=== PATIENT | female | born 1980 | race Caucasian/White ===

== ENCOUNTER 2018-11-10 01:10 | Inpatient (IN) | payer BC ==
[~2018-11-10 01:10] MED LIST: ELECTROLYTE-148 SOLN 500 ML IV ONE
[2018-11-10] MEDS ORDERED: ELECTROLYTE-148 SOLN 500 ML IV ONE (02:10)
[2018-11-10] MEDS ORDERED: ELECTROLYTE-148 SOLN 1,000 ML IV SCH ×2 (05:45→10:00)
[2018-11-10] MEDS ORDERED: MAGNESIUM 4GM/H20 - 4 GM/100 ML IVPB IVPB ONE (06:15)
[2018-11-10] MEDS ORDERED: MAGNESIUM SULFATE IN WATER 4 GM/50 ML IVPB IVPB ONE (06:23)
[2018-11-10] MEDS: ELECTROLYTE-148 SOLN 1,000 ML IV SCH ×2 (06:30→14:30)
[2018-11-10] MEDS ORDERED: BETAMET ACET/BETAMET NA PH 30 MG/5 ML VIAL ONE (06:34)
[2018-11-10] MEDS: BETAMET ACET/BETAMET NA PH 30 MG/5 ML VIAL IM SCH (06:40)
[2018-11-10] MEDS ORDERED: MAGNESIUM SULFATE 20GM/500ML - 20 GM/500 ML INFUS.BAG IVPB SCH ×2 (06:45→14:00)
[2018-11-10] MEDS ORDERED: CLINDAMYCIN 600MG PREMIX IVPB 600 MG/50 ML BAG IVPB SCH (07:00)
[2018-11-10] MEDS ORDERED: GENTAMICIN 80 MG PREMIXED IVPB 80 MG/100 ML BAG IVPB SCH (07:00)
[2018-11-10] MEDS ORDERED: MAGNESIUM SULFATE 20GM/500ML - 20 GM/500 ML INFUS.BAG ONE ×2 (07:05→19:44)
[2018-11-10 07:15] VITALS: BMI 27.8
[2018-11-10 07:24] LABS: BASO % 0.3 % (0-2.0); EOS % 2.7 % (0-4.5); HEMATOCRIT 35.4 % (32.4-45.2); HEMOGLOBIN 12.1 GM/dL (10.7-15.3); LYMPH % 19.6 % (8-40); MCH 30.5 pg (25.7-33.7); MCHC 34.3 g/dl (32.0-36.0); MEAN CELL VOLUME 88.9 fl (80-96); MEAN PLT VOLUME 7.9 fl (7.5-11.1); MONO % 5.5 % (3.8-10.2); NEUT % 71.9 % (42.8-82.8); PLATELET COUNT 242 K/MM3 (134-434); RBC 3.98 M/mm3 (3.60-5.2); WHITE BLOOD COUNT 14.7 K/mm3 (4.0-10.0)
[2018-11-10] MEDS ORDERED: GENTAMICIN SO4 80 MG/2 ML VIAL ONE (07:36)
[2018-11-10 07:38] LABS: INR 0.93 (0.83-1.09)
[2018-11-10 07:41] LABS: ACTIVATED PTT 23.6 SECONDS (25.2-36.5)
[2018-11-10 07:45] LABS: ANION GAP 9 MMOL/L (8-16); BLOOD UREA NITROGEN 7 mg/dL (7-18); CALCIUM 7.5 mg/dL (8.5-10.1); CHLORIDE 109 mmol/L (98-107); CO2 22 mmol/L (21-32); CREATININE 0.4 mg/dL (0.55-1.3); GLUCOSE,RANDOM 86 mg/dL (74-106); POTASSIUM 3.9 mmol/L (3.5-5.1); SODIUM 140 mmol/L (136-145)
[2018-11-10 09:44] LABS: URINE APPEARANCE CLEAR; URINE BILIRUBIN NEGATIVE (<2.0 mg/dL); URINE COLOR STRAW; URINE GLUCOSE (UA) NEGATIVE (NEGATIVE); URINE KETONE NEGATIVE (NEGATIVE); URINE LEUK ESTERASE NEGATIVE (NEGATIVE); URINE NITRITE NEGATIVE (NEGATIVE); URINE PROTEIN NEGATIVE (NEGATIVE); URINE UROBILINOGEN NEGATIVE mg/dL (0.2-1.0)
--- NOTE | 2018-11-10 09:53 | HP ---
Past Medical History - Primary Care Physician PCP:: Galina Hernandez - Admission Chief Complaint: 37yo @ 26.6wks with contructions, no VB, no LOF, + FM. She recieved 1 liter of IVF in EU contructions disappeared and restarted after hydration was stopped History of Present Illness: 1. AMA - normal Cell free DNA 2. PTL with both prior pregnancies, delivered - Maria Alejandra since 16wks this , long cervix currently 3. 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 GDMA2 with prior - early GTT neg History Source: Patient, Medical Record Limitations to Obtaining History: No Limitations - Past Medical History ...: 3 ...Para: 2 ...: 2 ...LMP: 05/06/19 ... Weeks Gestation by Dates: 26.6 ...EDC by Dates: 02/10/19 ...EDC by Sono: 02/10/19 Additional OB History: h/o abnormal PAP, most current negative - Past Surgical History Past Surgical History: Yes: None Hx Myomectomy: No Hx Transabdominal Cerclage: No - Smoking History Smoking history: Never smoked - Alcohol/Substance Use Hx Alcohol Use: No History of Substance Use: reports: None - Social History Usual Living Arrangement: Yes: With Spouse History of Recent Travel: No Home Medications - Allergies Allergies/Adverse Reactions: Allergies Allergy/AdvReac Type Severity Reaction Status Date / Time clindamycin Allergy Severe Itching Verified 11/10/18 08:07 Penicillins Allergy Intermediate Itching Verified 11/10/18 02:30 - Home Medications Home Medications: Ambulatory Orders Vitamin Tablet 1 tab PO DAILY 11/10/18 Progesterone 250 mg IM WEEKLY 11/10/18 Family Disease History - Family Disease History Family History: Denies Review of Systems - Review of Systems Constitutional: reports: No Symptoms Eyes: reports: No Symptoms HENT: reports: No Symptoms Neck: reports: No Symptoms Cardiovascular: reports: No Symptoms Respiratory: reports: No Symptoms Gastrointestinal: reports: No Symptoms Genitourinary: reports: Other ( contructions) Breasts: reports: No Symptoms Reported Musculoskeletal: reports: No Symptoms Integumentary: reports: No Symptoms Neurological: reports: No Symptoms Endocrine: reports: No Symptoms Hematology/Lymphatic: reports: No Symptoms Psychiatric: reports: No Symptoms Physical Exam - Maternity Vital Signs: Vital Signs Temperature 98.0 F 11/10/18 08:00 Pulse Rate 81 11/10/18 09:00 Respiratory Rate 18 11/10/18 09:00 Blood Pressure 119/67 11/10/18 09:00 O2 Sat by Pulse Oximetry (%) Constitutional: Yes: Well Nourished, No Distress Eyes: Yes: WNL HENT: Yes: WNL, Atraumatic, Normocephalic Neck: Yes: WNL, Supple, Trachea Midline Cardiovascular: Yes: WNL, Regular Rate and Rhythm Lungs: Clear to auscultation Breast(s): Yes: WNL - Abdominal Exam/OB Fundal Height: 26 Number of Fetuses: Single Presentation: Vertex (by US) Contractions: Yes Regularity: Regular Intensity: Mild/Mod Monitor Mode: External Heart Rate (range): 140 Heart Rate Location: Midline Category: I Accelerations: Uniform Decelerations: None - Vaginal Exam/OB Vaginal Bleediing: No Dilatation (cm): 0 Effacement (%): 0 Amniotic Membrane Status: Intact Presentation: Vertex/Position Station: -3 - Physical Exam Musculoskeletal: Yes: WNL Extremities: Yes: WNL Edema: No Integumentary: Yes: WNL ...Motor Strength: WNL Psychiatric: Yes: WNL, Alert, Oriented - Labs Lab Results: CBC, BMP 11/10/18 07:05 11/10/18 07:05 Imaging - Results Ultrasound: Report Reviewed (Cervix 3.6cm, EFW - 998gm) Assessment/Plan 37yo P2 @ 26.6wks with painful regular contructions since sever prematurity Tocolysis/Neroprophylaxis with MgSo4 started UA and GBS cultures collected Celestone for lung maturity given Vancomycin for GBS prophylaxis started Plan discussed with patient all questions answered
[2018-11-10] MEDS ORDERED: VANCOMYCIN 1,000 MG in DEXTROSE 5%-WATER - 250 ML IVPB ONE (10:30)
[2018-11-10] MEDS ORDERED: PRENATAL VITAMINS W/ FOLIC ACID TABLET (FP) PO SCH (10:30)
--- NOTE | 2018-11-10 21:03 | PN ---
Progress Note, Physician Chief Complaint: 37yo P2 @ 26.2 wks in labor she has no complains - Current Medication List Current Medications: Active Medications Betamethasone Acet/Betameth SodPhos (Celestone Soluspan -) 12.5 mg IM Q24H OLIVIA Stop: 11/11/18 07:46 Last Admin: 11/10/18 06:40 Dose: 12.5 mg Parenteral Electrolytes (Plasma-Lyte 148 -) 1,000 mls @ 75 mls/hr IV ASDIR OLIVIA Last Admin: 11/10/18 14:30 Dose: 75 mls/hr Magnesium Sulfate (Magnesium Sulfate 20gm/500ml -) 20 gm in 500 mls @ 25 mls/ hr IVPB ASDIR OLIVIA Last Admin: 11/10/18 13:30 Dose: 25 mls/hr Patient's Own Med ( Chewable Vitamin) 1 each PO DAILY OLIVIA - Objective Vital Signs: Vital Signs Temperature 97.9 F 11/10/18 20:00 Pulse Rate 94 H 11/10/18 20:00 Respiratory Rate 18 11/10/18 20:00 Blood Pressure 112/63 11/10/18 20:00 O2 Sat by Pulse Oximetry (%) 98 11/10/18 14:52 Constitutional: Yes: Well Nourished, No Distress, Calm Eyes: Yes: WNL, Conjunctiva Clear HENT: Yes: WNL, Atraumatic, Normocephalic Neck: Yes: WNL, Supple, Trachea Midline Cardiovascular: Yes: WNL, Regular Rate and Rhythm, Murmur Respiratory: Yes: Regular, CTA Bilaterally Gastrointestinal: Yes: WNL Genitourinary: Yes: WNL Musculoskeletal: Yes: WNL Extremities: Yes: WNL Edema: No Peripheral Pulses WNL: Yes Neurological: Yes: WNL, Alert, Oriented ...Motor Strength: WNL Psychiatric: Yes: WNL, Alert, Oriented Additional Findings/Remarks: FHR: 140s Category 1 Appropriate for GA ToCo no contructions Labs: CBC, BMP 11/10/18 07:05 11/10/18 07:05 INR, PTT INR 0.93 (0.83-1.09) 11/10/18 07:05 Assessment/Plan 37yo P2 @ 26.2wks s/p # 1 dose of Celestone for lung maturity on MgSo4 for Neuroprophilaxis s/p Vancomycin for GBS prophylaxis Cultures pending no s/s of MgSo4 toxicity, level therapeutic, tolarated by patient well will d/c MgSo4 after 2nd Celestone dose @ 6:30 am and observe plan discussed with patient, she fully understands
[2018-11-10 23:02] LABS: BASO % 0.1 % (0-2.0); HEMOGLOBIN 12.8 GM/dL (10.7-15.3); LYMPH % 7.4 % (8-40); MCH 30.7 pg (25.7-33.7); MCHC 34.5 g/dl (32.0-36.0); MEAN CELL VOLUME 88.9 fl (80-96); MONO % 4.6 % (3.8-10.2); NEUT % 87.9 % (42.8-82.8); PLATELET COUNT 262 K/MM3 (134-434); RBC 4.16 M/mm3 (3.60-5.2); RDW 13.1 % (11.6-15.6); WHITE BLOOD COUNT 20.4 K/mm3 (4.0-10.0)
[2018-11-11 00:22] LABS: PLATELET ESTIMATE ADEQUATE
[2018-11-11] MEDS: ELECTROLYTE-148 SOLN 1,000 ML IV SCH (04:35)
[2018-11-11] MEDS ORDERED: ELECTROLYTE-148 SOLN 1,000 ML IV SCH (06:30)
[2018-11-11] MEDS: BETAMET ACET/BETAMET NA PH 30 MG/5 ML VIAL IM SCH (06:35)
[2018-11-11] MEDS: PRENATAL VITAMIN PO SCH (10:00)
--- NOTE | 2018-11-11 18:42 | PN ---
Progress Note, Physician Chief Complaint: 37yo P2 @ 26.2 wks in labor she has no complains today, no contractions - Current Medication List Current Medications: Active Medications Patient's Own Med ( Chewable Vitamin) 1 each PO DAILY OLIVIA Last Admin: 11/11/18 10:00 Dose: 1 each - Objective Vital Signs: Vital Signs Temperature 99 F 11/11/18 18:00 Pulse Rate 79 11/11/18 18:00 Respiratory Rate 20 11/11/18 18:00 Blood Pressure 114/59 L 11/11/18 18:00 O2 Sat by Pulse Oximetry (%) 98 11/10/18 14:52 Constitutional: Yes: Well Nourished, No Distress, Calm Eyes: Yes: WNL, Conjunctiva Clear HENT: Yes: WNL, Atraumatic, Normocephalic Neck: Yes: WNL, Supple, Trachea Midline Cardiovascular: Yes: WNL, Regular Rate and Rhythm Respiratory: Yes: WNL, Regular, CTA Bilaterally Gastrointestinal: Yes: WNL, Normal Bowel Sounds, Soft Genitourinary: Yes: Other (Cervicx - L/C/P) Musculoskeletal: Yes: WNL Extremities: Yes: WNL Edema: No Peripheral Pulses WNL: Yes Integumentary: Yes: WNL Wound/Incision: Yes: Clean/Dry, Well Approximated Neurological: Yes: WNL, Alert, Oriented ...Motor Strength: WNL Psychiatric: Yes: WNL, Alert, Oriented Labs: CBC, BMP 11/10/18 22:30 11/10/18 07:05 INR, PTT INR 0.93 (0.83-1.09) 11/10/18 07:05 Assessment/Plan 37yo P2 @ 27wks admited with painful regular contractions s/p #2 doses of Celestone 24hrs of MgSo4 and 1 dose of Vancomycin Urine and GBS cultures are negative She does not have any discomfort or s/s of PTL will transfer to Antepartum service for 24hr observation
--- NOTE | 2018-11-12 08:14 | PN ---
Progress Note (SOAP) - Subjective Chief Complaint: Feels well, no contractions, no pain, no LOF, good FM - Current Medications Current Medications: Active Medications Patient's Own Med ( Chewable Vitamin) 1 each PO DAILY OLIVIA Last Admin: 11/11/18 10:00 Dose: 1 each - Objective Vital Signs: Vital Signs Temperature 98.6 F 11/11/18 22:00 Pulse Rate 74 11/11/18 22:00 Respiratory Rate 18 11/11/18 22:00 Blood Pressure 114/58 L 11/11/18 22:00 O2 Sat by Pulse Oximetry (%) 98 11/10/18 14:52 Constitutional: Yes: Well Nourished Eyes: Yes: WNL, Conjunctiva Clear HENT: Yes: WNL, Atraumatic, Normocephalic Neck: Yes: WNL, Supple, Trachea Midline Cardiovascular: Yes: WNL, Regular Rate and Rhythm Respiratory: Yes: WNL, Regular, CTA Bilaterally Gastrointestinal: Yes: WNL, Normal Bowel Sounds, Soft, Other (Gravid, non-tender ) Genitourinary: Yes: WNL Musculoskeletal: Yes: WNL Extremities: Yes: WNL Peripheral Pulses WNL: No Edema: No Integumentary: Yes: WNL Neurological: Yes: WNL, Alert, Oriented ...Motor Strength: Yes: WNL Psychiatric: Yes: WNL Labs Lab Results: CBC, BMP 11/10/18 22:30 11/10/18 07:05 Imaging - Results Other: Pending (NST) Assessment/Plan 37yo P0202 with at EGA 27w1d admitted with labor and successfully tocolysed. Pt w/o complaints and doing well. She is afebrile, VSS, no s/sx of labor. Plan to discharge to home. Precautions reviewed.
[2018-11-12 09:25] VITALS: BP 118/69; PULSE 81; TEMP 98.1
[2018-11-12] MEDS: PRENATAL VITAMIN PO SCH (10:15)
== END 2018-11-12 10:40 | disposition home or self-care (01) | DRG 833 ==
LOC: JDEL 01:10 → JLDR 06:00 → J3W 11-11 11:33
PROVIDERS: ADMIT Obstetrics & Gynecology; ATTEND Obstetrics & Gynecology
DX: O60.02 Preterm labor without delivery, second trimester (principal); Z3A.26 26 weeks gestation of pregnancy
CPT/HCPCS: 36415; 80048; 81003; 83735; 85025; 85610; 85730; 86593; 86850; 86900; 86901; 87081; 87086; 96372

== ENCOUNTER 2019-01-20 01:45 | Inpatient (IN) | payer BC ==
[2019-01-20 03:02] VITALS: BMI 29.8
[2019-01-20 03:21] LABS: BASO % 0.5 % (0-2.0); EOS % 1.1 % (0-4.5); HEMATOCRIT 37.4 % (32.4-45.2); HEMOGLOBIN 12.6 GM/dL (10.7-15.3); LYMPH % 22.4 % (8-40); MCHC 33.6 g/dl (32.0-36.0); MEAN CELL VOLUME 86.2 fl (80-96); MEAN PLT VOLUME 9.5 fl (7.5-11.1); MONO % 7.4 % (3.8-10.2); NEUT % 68.6 % (42.8-82.8); PLATELET COUNT 223 K/MM3 (134-434); RBC 4.33 M/mm3 (3.60-5.2); WHITE BLOOD COUNT 14.3 K/mm3 (4.0-10.0)
[2019-01-20] MEDS ORDERED: TUBERCULIN PPD 5 TU/0.1ML SYRINGE (IN PATIENT USE ONLY) ID ONE (03:30)
[2019-01-20] MEDS ORDERED: ELECTROLYTE-148 SOLN 1,000 ML IV SCH ×2 (03:30→04:45)
[2019-01-20 03:36] LABS: INR 0.91 (0.83-1.09); PROTHROMBIN TIME (PATIENT) 10.7 SEC (9.7-13.0)
[2019-01-20 03:39] LABS: ACTIVATED PTT 25.4 SECONDS (25.2-36.5)
[2019-01-20 04:05] LABS: CALCIUM 8.4 mg/dL (8.5-10.1); CREATININE 0.5 mg/dL (0.55-1.3)
--- NOTE | 2019-01-20 04:39 | HP ---
Past Medical History - Primary Care Physician PCP:: Galina Hernandez - Admission Chief Complaint: 38yo P2 @ 37wks with painful contructions, no VB, no LOF, + FM History of Present Illness: 1. GDMA1 - good control, FS 76 on admission 2. h/o PTL x 2 on Maria Alejandra this , s/p Selestone 3. HSV pos. - on Valtrex, no lesions 4. GBS negative History Source: Patient Limitations to Obtaining History: No Limitations - Past Medical History ...: 3 ...Para: 2 ...Term: 0 ...: 2 ...Spon : 0 ...Induced : 0 ...Multiple Gestation: 0 ...LMP: 05/06/18 ... Weeks Gestation by Dates: 37.0 ...EDC by Dates: 02/10/19 ...EDC by Sono: 02/10/19 Additional OB History: x 2 2007, 2009. h/o abnormal PAPs - Past Surgical History Past Surgical History: Yes: None, Appendectomy (2018 - not ruptured) Hx Myomectomy: No Hx Transabdominal Cerclage: No - Smoking History Smoking history: Never smoked Have you smoked in the past 12 months: No - Alcohol/Substance Use Hx Alcohol Use: No History of Substance Use: reports: None - Social History History of Recent Travel: No Home Medications - Allergies Allergies/Adverse Reactions: Allergies Allergy/AdvReac Type Severity Reaction Status Date / Time clindamycin Allergy Severe Itching Verified 01/08/19 18:56 terbutaline [From Brethine] Allergy Severe Verified 01/20/19 03:34 Penicillins Allergy Intermediate Itching Verified 01/08/19 18:56 - Home Medications Home Medications: Ambulatory Orders Vitamin Tablet 1 tab PO DAILY 11/10/18 Valtrex 500 mg PO DAILY 01/20/19 Family Disease History - Family Disease History Family History: Unremarkable Review of Systems - Review of Systems Constitutional: reports: No Symptoms Eyes: reports: No Symptoms HENT: reports: No Symptoms Neck: reports: No Symptoms Cardiovascular: reports: No Symptoms Respiratory: reports: No Symptoms Gastrointestinal: reports: No Symptoms Genitourinary: reports: Other (painful contructions) Breasts: reports: No Symptoms Reported Musculoskeletal: reports: No Symptoms Integumentary: reports: No Symptoms Neurological: reports: No Symptoms Endocrine: reports: No Symptoms Hematology/Lymphatic: reports: No Symptoms Psychiatric: reports: No Symptoms Pain Intensity: 5 Physical Exam - Maternity Vital Signs: Vital Signs Temperature 98.0 F 01/20/19 04:15 Pulse Rate 82 01/20/19 04:15 Respiratory Rate 18 01/20/19 04:15 Blood Pressure 123/78 01/20/19 04:15 O2 Sat by Pulse Oximetry (%) Constitutional: Yes: Well Nourished, No Distress, Calm Eyes: Yes: WNL HENT: Yes: WNL, Atraumatic, Normocephalic Neck: Yes: WNL, Supple, Trachea Midline Cardiovascular: Yes: WNL, Regular Rate and Rhythm Lungs: Clear to auscultation Breast(s): Yes: WNL - Abdominal Exam/OB Fundal Height: 37 (6lb) Number of Fetuses: Single Presentation: Vertex Contractions: Yes Regularity: Regular Intensity: Moderate Monitor Mode: External Heart Rate (range): 140 Heart Rate Location: Midline Category: I Accelerations: Uniform Decelerations: None - Vaginal Exam/OB Vaginal Bleediing: No Speculum Exam: No Dilatation (cm): 4-5 Effacement (%): 90 Amniotic Membrane Status: Intact Presentation: Vertex/Position Station: -2 - Physical Exam Musculoskeletal: Yes: WNL Extremities: Yes: WNL Edema: No Integumentary: Yes: WNL ...Motor Strength: WNL Psychiatric: Yes: WNL, Alert, Oriented - Labs Lab Results: CBC, BMP Bpos/NR/RI/HIV neg/HBsAg neg 01/20/19 02:45 01/20/19 02:45 Assessment/Plan 38yo P2 @ 37wks in labor Admit to L&D Alternating IVF to keep FS within 120-80 range Labs, NPO FS Q 2hrs Pain management as needed Anticipate
[2019-01-20] MEDS ORDERED: DEXTROSE 5%-LACTATED RINGERS 1,000 ML IV SCH (04:45)
[2019-01-20] MEDS ORDERED: FENTANYL/BUPIVACAINE/NS/PF - PCEA - 50 ML DISP.SYRIN EP ONE (05:00)
[2019-01-20] MEDS ORDERED: LIDO 2%/EPI 1:200000 PRESRVFRE (20 ML SDVIAL) ONE (05:10)
[2019-01-20] MEDS ORDERED: BUPIVACAINE HCL/PF 0.25% (2.5MG/ML) 10 ML VIAL ONE (05:10)
[2019-01-20] MEDS ORDERED: NALOXONE HCL 0.4 MG/ML VIAL IVPUSH PRN (05:31)
[2019-01-20] MEDS ORDERED: ePHEDrine SULFATE 50 MG/1 ML AMPULE ONE (05:43)
[2019-01-20] MEDS ORDERED: FENTANYL/BUPIVACAINE/NS/PF - PCEA - 50 ML DISP.SYRIN EP SCH (05:45)
--- NOTE | 2019-01-20 06:43 | PN ---
Progress Note, Labor Vaginal Exam #1 Labor Exam Date: 01/20/19 Labor Exam Time: 06:30 Heart Rate (range): 135-140, Category 1, s/p bradicaria event post Epi Dilatation: 7-8 Effacement (%): 100 Amniotic Membrane Status: Intact Presentation: Vertex/Position Station: -2 Remarks: AROM, clear fluid MFS reassuring
[2019-01-20] MEDS ORDERED: BISACODYL 10 MG SUPP.RECT RC PRN (08:01)
[2019-01-20] MEDS ORDERED: WITCH HAZEL 50% (TUCKS) 40 PAD/JAR PAD TP PRN (08:01)
[2019-01-20] MEDS ORDERED: BENZOCAINE 20% 57 GM BOTTLE TP PRN (08:01)
[2019-01-20] MEDS ORDERED: METHYLERGONOVINE MALEATE 0.2 MG/1 ML AMP IM PRN (08:01)
--- NOTE | 2019-01-20 08:02 | PN ---
Delivery - Delivery Vaginal Delivery: No Problems Type of Anesthesia: Epidural Episiotomy/Laceration: 1st degree EBL (cc): 200 Delivery, Single - Stages of Labor Date 1st Stage Initiatied: 01/19/19 Time 1st Stage Initiated: 22:00 Date 2nd Stage Initiated: 01/20/19 Time 2nd Stage Initiated: 07:20 Date of Delivery: 01/20/19 Time of Delivery: 07:40 Date Placenta Delivered: 01/20/19 Time Placenta Delivered: 07:45 Placenta: Yes: Spontaneous - Condition of Washroom Operator/[employer] Business Representative Present: No Infant Gender: Female Weight: 5 lb 13 oz Position: Right, OA - 1 Minute Total Score: 9 5 Minutes Total Score: 9 - Feeding Plan Initial Plan: Exclusive throughout hospitalization Benefits of Exclusively reinforced: Yes Remarks - Remarks Remarks: Uncomplicated delivery of head and shoulders
[2019-01-20] MEDS ORDERED: D5W-LR W/ 20 UNITS OXYTOCIN 20 UNIT/1,000 ML INFUS.BAG IV SCH (08:15)
[2019-01-20] MEDS ORDERED: OXYTOCIN 20 UNITS in 0.9% NS 20 UNIT/1,000 ML INFUS.BAG IV ONE (08:56)
[2019-01-20] MEDS: FERROUS SO4 325 MG TABLET (FP) PO SCH ×2 (14:53→21:30)
[2019-01-20] MEDS: PRENATAL VITAMINS W/ FOLIC ACID TABLET (FP) PO SCH (14:55)
[2019-01-20] MEDS: IBUPROFEN 600 MG TABLET (FP) PO PRN (20:08)
[2019-01-20] MEDS: SENNOSIDES/DOCUSATE COMBO (SENNA PLUS) TABLET (UD) PO PRN (21:30)
[2019-01-20] MEDS: BENZOCAINE 28 GM HEMORRHOIDAL OINTMENT TP PRN (21:31)
[2019-01-21] MEDS: IBUPROFEN 600 MG TABLET (FP) PO PRN ×5 (00:03→21:08)
[2019-01-21] MEDS: ACETAMINOPHEN 325 MG TABLET (FP) PO PRN ×4 (00:04→21:08)
[2019-01-21 08:07] LABS: BASO % 0.4 % (0-2.0); HEMATOCRIT 34.3 % (32.4-45.2); HEMOGLOBIN 11.6 GM/dL (10.7-15.3); LYMPH % 14.7 % (8-40); MCH 29.1 pg (25.7-33.7); MCHC 33.9 g/dl (32.0-36.0); MEAN CELL VOLUME 85.9 fl (80-96); MEAN PLT VOLUME 9.1 fl (7.5-11.1); NEUT % 77.9 % (42.8-82.8); PLATELET COUNT 200 K/MM3 (134-434); RDW 14.9 % (11.6-15.6); WHITE BLOOD COUNT 16.6 K/mm3 (4.0-10.0)
--- NOTE | 2019-01-21 08:07 | PN ---
Post Progress Note - Subjective Subjective: Patient without acute complaints. Reports tolerating oral intake without nausea or vomiting. Ambulating without dizziness. Denies fevers or chills. Pain well controlled with oral pain medication. Pumping/breast feeding without issue. Passing flatus. Post Day: 2 Type of Delivery: Vital Signs: Vital Signs Temperature 98 F 01/21/19 07:56 Pulse Rate 72 01/21/19 07:56 Respiratory Rate 18 01/21/19 07:56 Blood Pressure 108/60 01/21/19 07:56 O2 Sat by Pulse Oximetry (%) 100 01/20/19 08:45 Breast Exam: Yes: Soft Uterus: Yes: Fundus Firm, Fundus below umbilicus, Non-tender Abdomen/GI: Yes: Abdomen soft, Passing flatus, Tolerating PO Lochia: Yes: Rubra Lochia, amount: Small Extremities: Yes: Calves non-tender, Edema (trace) Perineum: Yes: Intact Activity: Ambulating - Labs Labs: CBC WBC 14.3 K/mm3 (4.0-10.0) H 01/20/19 02:45 RBC 4.33 M/mm3 (3.60-5.2) 01/20/19 02:45 Hgb 12.6 GM/dL (10.7-15.3) 01/20/19 02:45 Hct 37.4 % (32.4-45.2) 01/20/19 02:45 MCV 86.2 fl (80-96) 01/20/19 02:45 MCH 29.0 pg (25.7-33.7) 01/20/19 02:45 MCHC 33.6 g/dl (32.0-36.0) 01/20/19 02:45 RDW 15.0 % (11.6-15.6) D 01/20/19 02:45 Plt Count 223 K/MM3 (134-434) 01/20/19 02:45 MPV 9.5 fl (7.5-11.1) D 01/20/19 02:45 Absolute Neuts (auto) 9.8 K/mm3 (1.5-8.0) H 01/20/19 02:45 Neutrophils % 68.6 % (42.8-82.8) D 01/20/19 02:45 Lymphocytes % 22.4 % (8-40) D 01/20/19 02:45 Monocytes % 7.4 % (3.8-10.2) 01/20/19 02:45 Eosinophils % 1.1 % (0-4.5) D 01/20/19 02:45 Basophils % 0.5 % (0-2.0) D 01/20/19 02:45 Nucleated RBC % 0 % (0-0) 01/20/19 02:45 Assessment/Plan 38yo s/p , doing well stable, afebrile. Asymptomatic for anemia. care instructions reviewed. Continue routine care. Ambulation encouraged Discharge instruction reviewed.
--- NOTE | 2019-01-21 08:11 | DS ---
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 Vital Signs: Vital Signs Temperature 98 F 01/21/19 07:56 Pulse Rate 72 01/21/19 07:56 Respiratory Rate 18 01/21/19 07:56 Blood Pressure 108/60 01/21/19 07:56 O2 Sat by Pulse Oximetry (%) 100 01/20/19 08:45 Constitutional: Yes: Well Nourished, No Distress, Calm Eyes: Yes: WNL, Conjunctiva Clear HENT: Yes: WNL, Atraumatic, Normocephalic Neck: Yes: WNL, Supple, Trachea Midline Cardiovascular: Yes: WNL, Regular Rate and Rhythm Respiratory: Yes: WNL, Regular, CTA Bilaterally Gastrointestinal: Yes: WNL, Normal Bowel Sounds, Soft ...Rectal Exam: Yes: Deferred Renal/: Yes: WNL External Genitalia: Yes: Normal Internal Exam Deferred: Yes ....Post : Yes: Uterus firm, Uterus non-tender Breast(s): Yes: WNL Musculoskeletal: Yes: WNL Extremities: Yes: WNL Edema: Yes Edema: LLE: Trace, RLE: Trace Integumentary: Yes: WNL Neurological: Yes: WNL, Alert, Oriented ...Motor Strength: WNL Psychiatric: Yes: WNL, Alert, Oriented Labs: CBC, BMP 01/20/19 02:45 Delivery - Delivery Vaginal Delivery: No Problems Type of Anesthesia: Epidural Episiotomy/Laceration: 1st degree EBL (cc): 200 Delivery, Single - Stages of Labor Date 1st Stage Initiatied: 01/19/19 Time 1st Stage Initiated: 22:00 Date 2nd Stage Initiated: 01/20/19 Time 2nd Stage Initiated: 07:20 Date of Delivery: 01/20/19 Time of Delivery: 07:40 Time Placenta Delivered: 07:45 Placenta: Yes: Spontaneous - Condition of Department [employer]/Dental Aide Present: No Gender: Female Weight: 2.637 kg Position: Right, OA Total Hours ROM (Hrs/Mins): 1h5m - 1 Minute Total Score: 9 5 Minutes Total Score: 9 - Feeding Plan Initial Plan: Exclusive throughout hospitalization Benefits of Exclusively reinforced: Yes Discharge Summary Reason For Visit: LABOR GDM A1, spont labor Procedures: Principal: Hospital Course: Normal recovery Condition: Good - Instructions Diet, Activity, Other Instructions: Physical activity Resume your normal everyday activity as tolerated no heavy lifting or exercise until seen by your surgeon. You may walk unlimited raul of and climb stairs. You may resume driving the car when you feel safe and comfortable behind the wheel. No sexual activity as instructed. Wound care If you have a bandage, leave it on, and keep dry for 48-72 hours. After that time discard the outer bandage. If they are tapes on the skin under the out of bandage leave them in place. They will peel off in the next 7 to 10 days. Do Not Peel them off. You may shower the day after surgery. If there are tapes present on the skin, you may shower over them. Diet There are no dietary restrictions. Eat healthy, high-fiber foods. Drink 6 to 8 glasses of liquid each day. This will assist in keeping your bowels are regular. Pain management You may take Tylenol or acetaminophen or Ibuprofen (for example, Motrin, Advil etc.) from my pain prescription medication is ordered should be taken as prescribed for moderate to severe pain. Call MD for any of the following: Severe pain not relieved by medication Fever of 101 or higher Excessive bleeding or drainage on dressing Inability to urinate Referrals: Josey Esparza MD [Staff Physician] - Disposition: HOME - Home Medications Comprehensive Discharge Medication List: Ambulatory Orders Vitamin Tablet 1 tab PO DAILY 11/10/18 Valtrex 500 mg PO DAILY 01/20/19
[2019-01-21] MEDS: FERROUS SO4 325 MG TABLET (FP) PO SCH ×2 (09:16→21:08)
[2019-01-21] MEDS: PRENATAL VITAMINS W/ FOLIC ACID TABLET (FP) PO SCH (09:17)
[2019-01-21] MEDS: SENNOSIDES/DOCUSATE COMBO (SENNA PLUS) TABLET (UD) PO PRN (21:09)
[2019-01-21] MEDS ORDERED: SENNOSIDES/DOCUSATE COMBO (SENNA PLUS) TABLET (UD) PO PRN (22:00)
[2019-01-22] MEDS: IBUPROFEN 600 MG TABLET (FP) PO PRN ×2 (04:09→09:22)
[2019-01-22] MEDS: ACETAMINOPHEN 325 MG TABLET (FP) PO PRN ×2 (04:10→09:22)
--- NOTE | 2019-01-22 06:26 | PN ---
Post Progress Note - Subjective Subjective: Patient without acute complaints. Reports tolerating oral intake without nausea or vomiting. Ambulating without dizziness. Denies fevers or chills. Pain well controlled with oral pain medication. without difficulty. Passing flatus. Post Day: 2 Type of Delivery: Vital Signs: Vital Signs Temperature 98.5 F 01/21/19 22:00 Pulse Rate 78 01/21/19 22:00 Respiratory Rate 18 01/21/19 22:00 Blood Pressure 135/78 01/21/19 22:00 O2 Sat by Pulse Oximetry (%) 100 01/20/19 08:45 Breast Exam: Yes: Soft Uterus: Yes: Fundus Firm Abdomen/GI: Yes: Abdomen soft, Passing flatus, Tolerating PO. No: Abdominal Distention, Tender Lochia: Yes: Rubra Lochia, amount: Small Extremities: Yes: Calves non-tender, Edema (trace) Activity: Ambulating - Labs Labs: CBC WBC 16.6 K/mm3 (4.0-10.0) H 01/21/19 07:19 RBC 4.00 M/mm3 (3.60-5.2) 01/21/19 07:19 Hgb 11.6 GM/dL (10.7-15.3) 01/21/19 07:19 Hct 34.3 % (32.4-45.2) 01/21/19 07:19 MCV 85.9 fl (80-96) 01/21/19 07:19 MCH 29.1 pg (25.7-33.7) 01/21/19 07:19 MCHC 33.9 g/dl (32.0-36.0) 01/21/19 07:19 RDW 14.9 % (11.6-15.6) 01/21/19 07:19 Plt Count 200 K/MM3 (134-434) 01/21/19 07:19 MPV 9.1 fl (7.5-11.1) 01/21/19 07:19 Absolute Neuts (auto) 13.0 K/mm3 (1.5-8.0) H 01/21/19 07:19 Neutrophils % 77.9 % (42.8-82.8) 01/21/19 07:19 Lymphocytes % 14.7 % (8-40) D 01/21/19 07:19 Monocytes % 5.0 % (3.8-10.2) 01/21/19 07:19 Eosinophils % 2.0 % (0-4.5) D 01/21/19 07:19 Basophils % 0.4 % (0-2.0) 01/21/19 07:19 Nucleated RBC % 0 % (0-0) 01/21/19 07:19 Assessment/Plan 38 yo PPD # 2 s/p , afebrile, vital signs stable, stable for discharge home 1. Patient stable for discharge home today. 2. Patient encouraged to contact MD for: - Severe pain not controlled by oral pain medication - Fevers or chills - Nausea or vomiting, intolerance of oral intake 3. Patient to follow up in office in 4-6 weeks for visit
[2019-01-22 08:16] VITALS: BP 117/60; PULSE 75; TEMP 98.4
[2019-01-22] MEDS: FERROUS SO4 325 MG TABLET (FP) PO SCH (09:22)
[2019-01-22] MEDS: BENZOCAINE 28 GM HEMORRHOIDAL OINTMENT TP PRN (09:24)
[2019-01-22] MEDS: PRENATAL VITAMINS W/ FOLIC ACID TABLET (FP) PO SCH (10:26)
== END 2019-01-22 11:30 | disposition home or self-care (01) | DRG 806 ==
LOC: JLDR 01:45 → J3W 09:16
PROVIDERS: ADMIT Obstetrics & Gynecology; ATTEND Obstetrics & Gynecology
PROC: 3E0R3BZ Introduction of Anesthetic Agent into Spinal Canal, Percutaneous Approach (ICD-10-PCS; 2019-01-20)
PROC: 10E0XZZ Delivery of Products of Conception, External Approach (ICD-10-PCS; principal; 2019-01-21)
PROC: 0HQ9XZZ Repair Perineum Skin, External Approach (ICD-10-PCS; 2019-01-21)
DX: O24.420 Gestational diabetes mellitus in childbirth, diet controlled (principal); O98.313 Other infections with a predominantly sexual mode of transmission complicating pregnancy, third trimester; Z37.0 Single live birth; O70.0 First degree perineal laceration during delivery; A60.09 Herpesviral infection of other urogenital tract; O28.2 Abnormal cytological finding on antenatal screening of mother; Z3A.37 37 weeks gestation of pregnancy
CPT/HCPCS: 36415; 36600; 59409; 80048; 82803; 82962; 85025; 85610; 85730; 86593; 86850; 86900; 86901; 87389